=== PATIENT | male | born 1995 | race Caucasian/White ===

== ENCOUNTER 2024-10-03 07:56 | Outpatient (CLI) | payer BC, SELFPAY | END 2024-10-03 07:57 | disposition home or self-care (01) | LOC: NFLDREF 10-07 16:24 | PROVIDERS: PCP Family Medicine; Referring Provider Family Medicine; Visit Provider Family Medicine | DX: Z00.00 Encounter for general adult medical examination without abnormal findings (principal); R53.83 Other fatigue; Z13.6 Encounter for screening for cardiovascular disorders | CPT/HCPCS: 80053; 80061; 84443 ==